=== PATIENT | male | born 1945 | race Caucasian/White ===

== ENCOUNTER 2016-03-27 14:40 | Outpatient (CLI) | END 2016-03-27 14:41 | disposition home or self-care (01) ==

== ENCOUNTER 2016-04-24 23:10 | Outpatient (CLI) | payer MEDICARE, OTHER | END 2016-04-24 23:11 | disposition home or self-care (01) | LOC: SC 23:10 | PROVIDERS: ATTEND Internal Medicine Pulmonary Disease | DX: G47.33 Obstructive sleep apnea (adult) (pediatric) (principal); Z68.29 Body mass index [BMI] 29.0-29.9, adult | CPT/HCPCS: 95810 ==

== ENCOUNTER 2016-05-13 10:07 | Outpatient (CLI) | payer MEDICARE, OTHER | END 2016-05-13 10:08 | disposition home or self-care (01) | DX: G47.33 Obstructive sleep apnea (adult) (pediatric) (principal) | CPT/HCPCS: 99213; G0463 ==

== ENCOUNTER 2016-07-18 22:25 | Outpatient (CLI) | payer MEDICARE, OTHER | END 2016-07-18 22:26 | disposition home or self-care (01) | DX: G47.33 Obstructive sleep apnea (adult) (pediatric) (principal); Z68.29 Body mass index [BMI] 29.0-29.9, adult ==

== ENCOUNTER 2016-08-04 13:19 | Outpatient (CLI) | payer MEDICARE, OTHER | END 2016-08-04 13:20 | disposition home or self-care (01) | DX: G47.33 Obstructive sleep apnea (adult) (pediatric) (principal) | CPT/HCPCS: 99213; G0463 ==

== ENCOUNTER 2016-09-22 14:24 | Outpatient (CLI) | payer MEDICARE, OTHER | END 2016-09-22 14:25 | disposition home or self-care (01) | LOC: SC 14:24 | PROVIDERS: ATTEND Internal Medicine Pulmonary Disease | DX: G47.33 Obstructive sleep apnea (adult) (pediatric) (principal) | CPT/HCPCS: 99213; G0463; 99212 ==

== ENCOUNTER 2016-10-03 10:00 | Outpatient (CLI) | payer MEDICARE, OTHER ==
[2016-10-03 12:46] LABS: BILIRUBIN,URINE NEGATIVE (NEGATIVE); PH,URINE 5.5 PH (5.0-7.5)
[2016-10-03 13:00] LABS: UA CHARGE (STRIP ONLY) YES; UR CULTURE IF IND NOT INDICATED
[2016-10-03 13:54] LABS: THYROID STIMULATING HORMONE 1.42 uIU/mL (0.34-5.60)
== END 2016-10-03 10:01 | disposition home or self-care (01) ==
LOC: LAB.R 10:00
PROVIDERS: ATTEND Nurse Practitioner Primary Care
DX: R41.89 Other symptoms and signs involving cognitive functions and awareness (principal); Z79.899 Other long term (current) drug therapy; R41.2 Retrograde amnesia
CPT/HCPCS: 81001; 81003; 82306; 82607; 84443; 86780; 87086

== ENCOUNTER 2017-02-04 14:10 | Outpatient (CLI) | payer MEDICARE, OTHER ==
[2017-02-04 14:17] LABS: BASOPHILS # (AUTO) 0.1 10^3/uL (0.0-0.1); EOSINOPHILS # (AUTO) 0.7 10^3/uL (0.0-0.7); EOSINOPHILS % (AUTO) 10.7 %; HCT - HEMATOCRIT 36.7 % (42.0-52.0); HGB - HEMOGLOBIN 12.4 g/dL (14.0-18.0); LYMPHOCYTES # (AUTO) 1.4 10^3/uL (1.5-3.5); LYMPHOCYTES % (AUTO) 23.3 %; MEAN CORPUSCULAR HEMOGLOBIN 28.2 pg (27.0-31.0); MEAN CORPUSCULAR HGB CONC 33.8 g/dL (32.0-36.0); MEAN CORPUSCULAR VOLUME 83.6 fL (80.0-94.0); MONOCYTES # (AUTO) 0.4 10^3/uL (0.0-1.0); NEUTROPHILS # (AUTO) 3.6 10^3/uL (1.5-6.6); RED BLOOD COUNT 4.39 10^6/uL (4.70-6.10); RED CELL DISTRIBUTION WIDTH 16.5 % (12.0-15.0); UNCORRECTED WHITE BLOOD COUNT 6.1 x10^3/uL; WHITE BLOOD COUNT 6.1 x10^3/uL (4.8-10.8)
[2017-02-04 14:37] LABS: ALBUMIN/GLOBULIN RATIO 1.3 (1.0-2.2); BILIRUBIN,TOTAL 0.4 mg/dL (0.2-1.0); BUN - BLOOD UREA NITROGEN 16 mg/dL (6-20); CARBON DIOXIDE - CO2 20 mmol/L (21-32); CHLORIDE 107 mmol/L (101-111); CHOL/HDL RATIO 3.7 (<5.0); CHOLESTEROL 157 mg/dL; CREATININE 1.2 mg/dL (0.6-1.2); GFR - MDRD 60 (>89); GLUCOSE 79 mg/dL (70-100); HDL CHOLESTEROL 42 mg/dL; POTASSIUM 3.8 mmol/L (3.5-5.0); SODIUM 138 mmol/L (135-145); TOTAL PROTEIN 7.6 g/dL (6.7-8.2); TRIGLYCERIDES 151 mg/dL; VLDL CHOLESTEROL 30 mg/dL
== END 2017-02-04 14:11 | disposition home or self-care (01) ==
LOC: LAB.R 14:10
PROVIDERS: ATTEND Physician Assistant Medical
DX: Z00.00 Encounter for general adult medical examination without abnormal findings (principal); D64.9 Anemia, unspecified; Z79.899 Other long term (current) drug therapy
CPT/HCPCS: 80053; 80061; 85025

== ENCOUNTER 2017-02-20 09:00 | Outpatient (CLI) | payer MEDICARE, OTHER | END 2017-02-20 09:01 | disposition home or self-care (01) | LOC: LAB.R 09:00 | PROVIDERS: ATTEND Nurse Practitioner Primary Care | DX: J30.9 Allergic rhinitis, unspecified (principal); J02.9 Acute pharyngitis, unspecified | CPT/HCPCS: 87070 ==

== ENCOUNTER 2017-05-13 08:00 | Outpatient (CLI) | payer MEDICARE, OTHER ==
[2017-05-13 11:57] LABS: BASOPHILS # (AUTO) 0.1 10^3/uL (0.0-0.1); BASOPHILS % (AUTO) 1.1 %; EOSINOPHILS # (AUTO) 0.5 10^3/uL (0.0-0.7); EOSINOPHILS % (AUTO) 10.2 %; HGB - HEMOGLOBIN 13.8 g/dL (14.0-18.0); LYMPHOCYTES # (AUTO) 1.5 10^3/uL (1.5-3.5); LYMPHOCYTES % (AUTO) 28.6 %; MEAN CORPUSCULAR HGB CONC 33.1 g/dL (32.0-36.0); MEAN CORPUSCULAR VOLUME 84.5 fL (80.0-94.0); MONOCYTES # (AUTO) 0.4 10^3/uL (0.0-1.0); MONOCYTES % (AUTO) 8.5 %; NEUTROPHILS # (AUTO) 2.7 10^3/uL (1.5-6.6); NEUTROPHILS % (AUTO) 51.6 %; PLT - PLATELET COUNT 221 10^3/uL (130-450); RED BLOOD COUNT 4.93 10^6/uL (4.70-6.10); RED CELL DISTRIBUTION WIDTH 17.9 % (12.0-15.0); WHITE BLOOD COUNT 5.2 x10^3/uL (4.8-10.8)
== END 2017-05-13 08:01 | disposition home or self-care (01) ==
LOC: LAB.R 08:00
PROVIDERS: ATTEND Physician Assistant Medical
DX: D64.9 Anemia, unspecified (principal); Z79.899 Other long term (current) drug therapy
CPT/HCPCS: 82728; 85025

== ENCOUNTER 2017-08-28 08:00 | Outpatient (CLI) | payer MEDICARE, OTHER ==
[2017-08-28 11:29] LABS: BASOPHILS # (AUTO) 0.1 10^3/uL (0.0-0.1); BASOPHILS % (AUTO) 0.9 %; EOSINOPHILS # (AUTO) 0.6 10^3/uL (0.0-0.7); EOSINOPHILS % (AUTO) 10.7 %; HGB - HEMOGLOBIN 15.2 g/dL (14.0-18.0); LYMPHOCYTES # (AUTO) 1.3 10^3/uL (1.5-3.5); LYMPHOCYTES % (AUTO) 23.4 %; MEAN CORPUSCULAR HEMOGLOBIN 32.2 pg (27.0-31.0); MEAN CORPUSCULAR HGB CONC 34.1 g/dL (32.0-36.0); MEAN CORPUSCULAR VOLUME 94.4 fL (80.0-94.0); MEAN PLATELET VOLUME 7.7 fL (7.4-11.4); MEAN RETIC VALUE 112.1; MONOCYTES # (AUTO) 0.4 10^3/uL (0.0-1.0); MONOCYTES % (AUTO) 7.4 %; NEUTROPHILS # (AUTO) 3.3 10^3/uL (1.5-6.6); NEUTROPHILS % (AUTO) 57.6 %; PLT - PLATELET COUNT 229 10^3/uL (130-450); RED BLOOD COUNT 4.73 10^6/uL (4.70-6.10); RED CELL DISTRIBUTION WIDTH 15.5 % (12.0-15.0); WHITE BLOOD COUNT 5.7 x10^3/uL (4.8-10.8)
[2017-08-28 11:42] LABS: % IRON SATURATION 22 % (20-50); IRON 75 ug/dL (45-182); TOTAL IRON BINDING CAPACITY 344 ug/dL (250-450); TRANSFERRIN 246 mg/dL (180-329)
== END 2017-08-28 08:01 | disposition home or self-care (01) ==
LOC: LAB.R 08:00
PROVIDERS: ATTEND Physician Assistant Medical
DX: D64.9 Anemia, unspecified (principal); Z79.899 Other long term (current) drug therapy
CPT/HCPCS: 82728; 83540; 84466; 85025; 85044

== ENCOUNTER 2017-10-07 11:05 | Outpatient (CLI) | payer MEDICARE, OTHER | END 2017-10-07 11:06 | disposition home or self-care (01) | LOC: SC 11:05 | PROVIDERS: ATTEND Nurse Practitioner Family | DX: G47.33 Obstructive sleep apnea (adult) (pediatric) (principal) | CPT/HCPCS: 99215; G0463; 99212 ==

== ENCOUNTER 2017-12-30 10:51 | Outpatient (CLI) | payer MEDICARE, OTHER | END 2017-12-30 10:52 | disposition home or self-care (01) | LOC: SC 10:51 | PROVIDERS: ATTEND Nurse Practitioner Family | DX: G47.33 Obstructive sleep apnea (adult) (pediatric) (principal) | CPT/HCPCS: 99215; G0463; 99212 ==

== ENCOUNTER 2018-03-10 08:34 | Outpatient (CLI) | payer MEDICARE, OTHER ==
[2018-03-10 12:10] LABS: BASOPHILS % (AUTO) 0.5 %; EOSINOPHILS # (AUTO) 0.1 10^3/uL (0.0-0.7); EOSINOPHILS % (AUTO) 1.7 %; HGB - HEMOGLOBIN 14.6 g/dL (14.0-18.0); LYMPHOCYTES # (AUTO) 1.7 10^3/uL (1.5-3.5); LYMPHOCYTES % (AUTO) 22.6 %; MEAN CORPUSCULAR HEMOGLOBIN 32.9 pg (27.0-31.0); MEAN CORPUSCULAR HGB CONC 34.4 g/dL (32.0-36.0); MEAN CORPUSCULAR VOLUME 95.7 fL (80.0-94.0); MONOCYTES # (AUTO) 0.7 10^3/uL (0.0-1.0); MONOCYTES % (AUTO) 9.6 %; NEUTROPHILS % (AUTO) 65.6 %; PLT - PLATELET COUNT 218 10^3/uL (130-450); RED BLOOD COUNT 4.42 10^6/uL (4.70-6.10); RED CELL DISTRIBUTION WIDTH 13.7 % (12.0-15.0); WHITE BLOOD COUNT 7.7 x10^3/uL (4.8-10.8)
[2018-03-10 12:18] LABS: ALBUMIN 4.3 g/dL (3.2-5.5); ALBUMIN/GLOBULIN RATIO 1.3 (1.0-2.2); ALKALINE PHOSPHATASE 59 IU/L (42-121); ALT ALANINE AMINOTRANSFERASE 17 IU/L (10-60); AST ASPARTATE AMINOTRANSFERASE 21 IU/L (10-42); BILIRUBIN,TOTAL 0.5 mg/dL (0.2-1.0); BUN - BLOOD UREA NITROGEN 18 mg/dL (6-20); CARBON DIOXIDE - CO2 23 mmol/L (21-32); CHLORIDE 105 mmol/L (101-111); CHOLESTEROL 162 mg/dL; GFR - MDRD 74 (>89); GLUCOSE 85 mg/dL (70-100); HDL CHOLESTEROL 54 mg/dL; LDL CHOLESTEROL,CALCULATED 69 mg/dL; LDL/HDL RATIO 1.3 (<3.6); SODIUM 137 mmol/L (135-145); TOTAL PROTEIN 7.5 g/dL (6.7-8.2); VLDL CHOLESTEROL 39 mg/dL
== END 2018-03-10 23:59 | disposition home or self-care (01) ==
LOC: LAB.R 08:34
PROVIDERS: ATTEND Physician Assistant Medical
DX: N40.0 Benign prostatic hyperplasia without lower urinary tract symptoms (principal); Z79.899 Other long term (current) drug therapy; E66.3 Overweight; Z12.5 Encounter for screening for malignant neoplasm of prostate; M15.9 Polyosteoarthritis, unspecified; R41.89 Other symptoms and signs involving cognitive functions and awareness
CPT/HCPCS: 80053; 80061; 83721; 84153; 84443; 85025

== ENCOUNTER 2018-03-17 10:19 | Outpatient (CLI) | payer MEDICARE, OTHER ==
--- NOTE | 2018-03-17 11:42 | XRAY Report ---
Reason: RIGHT FOOT PAIN Procedure Date: 03/17/2018 Accession Number: [id number] / [id number] Procedure: XR - Foot 3 View RT CPT Code: FULL RESULT: EXAM: RIGHT FOOT RADIOGRAPHY EXAM DATE: 03/17/2018 10:53 AM. CLINICAL HISTORY: Right foot pain. COMPARISON: None. TECHNIQUE: 3 views. FINDINGS: Bones: Normal. No fractures or bone lesions. Joints: There are degenerative changes of the interphalangeal joints, with appearance of osteoarthrosis. No subluxations. Soft Tissues: Normal. No soft tissue swelling. IMPRESSION: No acute fracture or dislocation is identified. RADIA
--- NOTE | 2018-03-17 11:42 | XRAY Report ---
Reason: COUGH Procedure Date: 03/17/2018 Accession Number: [id number] / [id number] Procedure: XR - Chest 2 View X-Ray CPT Code: 72571 FULL RESULT: EXAM: CHEST RADIOGRAPHY EXAM DATE: 03/17/2018 10:51 AM. CLINICAL HISTORY: Cough. COMPARISON: XR ACUTE ABDOMEN SERIES 01/16/2012 2:56 PM. TECHNIQUE: 2 views. FINDINGS: Lungs/Pleura: No focal opacities evident. No pleural effusion. No pneumothorax. Normal volumes. Mediastinum: Heart and mediastinal contours are unremarkable. Other: None. IMPRESSION: No acute cardiopulmonary abnormality. RADIA
== END 2018-03-17 10:20 | disposition home or self-care (01) ==
LOC: DI 10:19
PROVIDERS: ATTEND Physician Assistant Medical
DX: R05 Cough (principal); M79.671 Pain in right foot
CPT/HCPCS: 71046

== ENCOUNTER 2018-11-11 09:33 | Outpatient (CLI) | payer MEDICARE, OTHER ==
[2018-11-11 10:49] VITALS: BP 122/68
--- NOTE | 2018-11-11 10:49 | SLEEP CARE CONSULTATION ---
Information from patient questionnaire entered by Mesha Corea. I have reviewed and concur with the information entered by Mesha Corea. This document represents the service I personally performed and the decisions made by me, Lauren Marie, RN, MSN, REPULPING SUPERVISOR. History of Present Illness Previous diagnosis: Moderate, Obstructive Sleep Apnea-Hypopnea Syndrome AHI: 16.1 Reason for CPAP/BiPAP follow up: annual Equipment type: CPAP Equipment obtained from: [email or web address] (having difficulty getting equipment.) Mask style: Nasal (Dreamwear nasal mask) Mask brand: Respironics Backup mask available: Yes Last cushion change: 3 weeks HPI additional information: Changes since last seen, he has sold his home and traveling in with son's address as permanent until his new residence is ready in [place]. He is here early to transfer to [facility] as current one is not convenient with new [facility]. CPAP Compliance Data - Data Reviewed with Patient Average duration of nightly device use: 7.1 Compliance rate %: 76.7 (180 days) Current pressure setting (cmH2O): 10-14 Humidity settin Heated hose settin Average residual AHI: 3.1 Average large leak: 2 mins 27 secs Subjective Missed days of use due to: reports: other (facial irritation and unable to get updated supplies from [email or web address]) Patient concerns: reports: nasal congestion (occasionally and can interfer with CPAP use. ). denies: aerophagia, mask discomfort, air blowing in eyes, mask leak noise, condensation in mask/hose, dry mouth, nose, throat, epistaxis Observed to snore while using device: No (single and sleeps alone) Current pressure setting perceived as: comfortable On therapy, patient: reports: sleeping better, awakening more refreshed, being more awake and alert during the day, more rested overall. denies: drowsiness while driving Initial [place] Sleepiness Scale score: 18 Current [place] Sleepiness Scale score: 10 Allergies and Home Medications Known drug allergies: Yes (penicillin, sulfa ) Home medication list reviewed: Yes Allergy and home medication list: Terasozin 10mg tab one daily Sertraline 100mg tab one daily Multivitamin Tab one daily Vitamin B12 1000mg one daily Iron 325mg daily Loratadine 10mg tab one daily prn Montelukast 10mg tab one daily Eye drops for dry eyes 1 drop in each eye twice daily Review of Systems Review of systems same as previous: No (Dry eyes) Physical Exam Blood Pressure: 122/68 Cuff size: long Heart Rate: 57 O2 Saturation: 98 Height: 5 ft 11 in Weight (kg): 101.605 kg Body Mass Index: 31.2 BMI Classification: Class 1 Impression and Plan 1. Obstructive Sleep Apnea-Hypopnea Syndrome, moderate, with good treatment compliance and good apnea control. On CPAP therapy, the patient has better sleep quality and is more rested overall.To reduce risk irritation from mask, I showed him the Pad A Cheek sample strap covers again. The strap covers that come with mask are also irritating. A brochure was given for contact information. When unable to use the PAP device, he is advised to raise of bed 30-40 degrees to reduce apnea risks. Since patient has gained some weight, I explained how his weight affects his CPAP requirements and symptoms to report for pressure adjustment. For nasal congestion, he is reminded to use the saline nasal spray and showering at night. He was advised he can increase humidity. For supply concerns, he would like to transfer to [facility]. I will make a DWO for transfer. If further problems , he can transfer again. Patient's apnea severity and rationale for treatment to reduce apnea, improve sleep quality and reduce cardiovascular and cerebrovascular events was reviewed. I also reviewed the benefit of consistent device use of CPAP for depression/anxiety. * Continue CPAP pressure at 10-14 cmH2O * Implement methods to reduce nasal congestion * Transfer to new [facility] * Notify me if snoring with mask or feeling that the pressure is too much or too little * Attempt to lose weight * Return for follow up in 1 year , or sooner if concerns arise I spent 100% of this 35 minute visit face to face with the patient with greater than 50% of this was spent time counseling the patient and coordination of care.
== END 2018-11-11 09:34 | disposition home or self-care (01) ==
LOC: SC 09:33
PROVIDERS: ATTEND Nurse Practitioner Family
DX: G47.33 Obstructive sleep apnea (adult) (pediatric) (principal)
CPT/HCPCS: 99214; G0463; 99212

== ENCOUNTER 2019-11-16 11:16 | Outpatient (CLI) | payer MEDICARE, OTHER ==
--- NOTE | 2019-11-16 11:56 | SLEEP CARE CONSULTATION ---
Information from patient questionnaire entered by Mesha Corea. I have reviewed and concur with the information entered by Mesha Corea. This document represents the service I personally performed and the decisions made by , Yolie Barney ARNP. History of Present Illness Service Date and Time: 11/16/2019 1116 Previous diagnosis: Moderate, Obstructive Sleep Apnea-Hypopnea Syndrome AHI: 16.1 (in 2016)(24.4 in 2006) Reason for follow up: annual (last seen 2018) Equipment type: CPAP Equipment obtained from: [employer] (getting supplies as needed) Mask style: Nasal Mask brand: Respironics (Dreamwear) Backup mask available: Yes (old mask) Last cushion change: 3 weeks ago Prior sleep studies: Yes Year and Where: 2016 and 2006 - [facility] Sleep Type of Sleep Study: Polysomnography HPI additional information: ARIANA YU was diagnosed to have moderate, AHI 16.1, obstructive sleep apnea- hypopnea syndrome and returned today for CPAP therapy annual follow-up. CPAP Compliance Data - Data Reviewed with Patient Average duration of nightly device use: 7.2 Compliance rate %: 74.4 (180 days) Current pressure setting (cmH2O): 10-14 Humidity settin Heated hose settin Average residual AHI: 2.7 Average large leak: 14 min 1 sec Subjective Missed days of use due to: reports: other (due to skin irritation from al lergies) Patient concerns: reports: mask discomfort (only when having allergies), other (skin irritation intermittent; occurs when blowing nose a lot dealing with allergies; atopic dermatitis). denies: aerophagia, air blowing in eyes, mask leak noise, condensation in mask/hose, nasal congestion, dry mouth, nose, throat, epistaxis Observed to snore while using device: No Current pressure setting perceived as: comfortable On therapy, patient: reports: sleeping better, awakening more refreshed, being more awake and alert during the day, more rested overall. denies: drowsiness while driving Initial [place] Sleepiness Scale score: 18 (in 2017) Current [place] Sleepiness Scale score: 11 Allergies and Home Medications Drug allergies reviewed: Yes (sulfa, penicillin) Home medication list reviewed: Yes (no changes) Review of Systems Review of systems same as previous: No (Right thumb joint replacement) Physical Exam Heart Rate: 61 O2 Saturation: 98 Height: 5 ft 11 in Weight: 228 lb 3.2 oz Body Mass Index: 31.8 BMI Classification: Obese Impression and Plan 1. Obstructive Sleep Apnea-Hypopnea Syndrome, moderate, with good treatment compliance and good apnea control. On CPAP therapy, there is improved sleep quality and feels more rested overall. He has had some days missing but is maintaining CPAP use above 70%. He states his nose get "irritated" when dealing with allergies. His nose becomes sore from the constant blowing of his nose and it is too painful to use his nasal cushion. He has tried Vaseline and other applications but has found that using mupirocin at the first indication of irritation reduces it in 1-2 days. He states he has to allow his nose to heal and this means not wearing the CPAP for 5-10 days. He really wants to use his CPAP therapy but states if he starts back using it too soon the irritation will come back. He has a history of atopic dermatitis. He obtained the mupiricin from his PCP, he thinks for this problem. He was advised to try to keep his skin clean and dry during these episodes of allergies causing skin irritation. He should follow up promptly with his PCP with increased swelling, spreading redn ess, drainage and significant pain. He states agreement with plan of care. Patient's apnea severity and rationale for treatment to reduce apnea, improve sleep quality and reduce cardiovascular and cerebrovascular events was reviewed. I also reviewed the benefit of consistent device use of CPAP for his depression/anxiety. * Continue auto CPAP pressure at 10-14 cmH2O * Notify me if snoring with mask or feeling that the pressure is too much or too little * Attempt to lose weight * Call this office if any problems using CPAP * Return for follow up in a year, or sooner if concerns arise Visit Type: In Office Time Spent with Patient (minutes): 23 Provider Statement: I spent 100% of the Face to Face Visit with the patient with greater than 50% spent counseling the patient and coordination of care.
== END 2019-11-16 11:17 | disposition home or self-care (01) ==
LOC: SC 11:16
PROVIDERS: ATTEND Nurse Practitioner Family
DX: G47.33 Obstructive sleep apnea (adult) (pediatric) (principal); E66.9 Obesity, unspecified; Z68.31 Body mass index [BMI] 31.0-31.9, adult
CPT/HCPCS: 99213; G0463; 99212

== ENCOUNTER 2020-11-15 13:14 | Outpatient (CLI) | payer MEDICARE, OTHER ==
--- NOTE | 2020-11-15 13:48 | SLEEP CARE CONSULTATION ---
Information from patient questionnaire entered by Mesha Corea. I have reviewed and concur with the information entered by Mesha Corea. This document represents the service I personally performed and the decisions made by , Yolie Barney ARNP. History of Present Illness Service Date and Time: 11/15/2020 1314 Previous diagnosis: Moderate, Obstructive Sleep Apnea-Hypopnea Syndrome AHI: 16.1 (in 2016)(24.4 in 2006) Reason for follow up: annual (last seen 10/2019) Equipment type: CPAP Equipment obtained from: [employer] (getting supplies as needed) Mask style: Nasal Backup mask available: Yes (old mask) Last cushion change: 2 months Prior sleep studies: Yes Year and Where: 2016 and 2006 - [facility] HPI additional information: ARIANA YU was diagnosed to have moderate, AHI 16.1, obstructive sleep apnea-hypopnea syndrome and returns via Telehealth visit today for CPAP therapy annual follow-up. CPAP Compliance Data - Data Reviewed with Patient Average duration of nightly device use: 7 hr 38 min Compliance rate %: 89.4 (180 days) Current pressure setting (cmH2O): 10-14 Humidity settin Heated hose settin Average residual AHI: 3.0 Average large leak: 1 hr 22 min Subjective Missed days of use due to: reports: illness (had Covid) Patient concerns: reports: mask leak noise (occasional with headgear; fixes well with adjustment). denies: aerophagia, mask discomfort, air blowing in eyes, condensation in mask/hose, nasal congestion, dry mouth, nose, throat, epistaxis, other Observed to snore while using device: No Current pressure setting perceived as: comfortable On therapy, patient: reports: sleeping better, awakening more refreshed, being more awake and alert during the day, more rested overall. denies: drowsiness while driving Initial [place] Sleepiness Scale score: 18 (in 2017) Current [place] Sleepiness Scale score: 12 Allergies and Home Medications Home medication list reviewed: Yes (Metoprolol 25 mg BID added) Review of Systems Review of systems same as previous: Yes (no changes) Physical Exam Vital signs obtained and entered by: Telehealth visit to reduce exposure during Covid pandemic Height: 5 ft 11 in Impression and Plan 1. Obstructive Sleep Apnea-Hypopnea Syndrome, moderate, with good treatment compliance and good apnea control. On CPAP therapy, the patient has better sleep quality and is more rested overall. Patient states that he is recovering from Covid. He had a few nights that he was unable to use CPAP due to congestion. He has a [employer]. I informed the patient that [employer] has a recall on several devices like the patients machine. Patient was encouraged to register their device online with [employer] for the recall to see if their device is affected. If their device is affected they should start a claim. Patient denies any black particles seen in machine or hoses, any unusual odors coming from device. Patient has not experienced any physical symptoms such as upper airway irritation, headache, skin or eye irritation, asthma, nausea/vomiting, difficulty breathing or chest pain. Patient informed that they may use an inline CPAP filter that they can obtain online to reduce chance of any particles being inhaled or ingested. We discussed thoroughly the health risks of not using the CPAP versus continuing use with the filter in place. If patient is not able to sleep due to waking up choking, gasping for air or other respiratory distress that they may decide to continue using it until it is either replaced or repaired. Patient also uses a So Clean to keep his CPAP clean. I advised him that [employer] has advised CPAP users to stop using these with their machines as it may exacerbate the foam breakdown. Patient voiced understanding but states he will continue to use it to clean his CPAP. He states he will obtain a inline particle filter for his device. Patient's apnea severity and rationale for treatment to reduce apnea, improve sleep quality and reduce cardiovascular and cerebrovascular events was reviewed. I also reviewed the benefit of consistent device use of CPAP for depression/anxiety. * Continue auto CPAP pressure at 10-14 cmH2O * Patient to register device with [employer] for recall * Notify me if snoring with mask or feeling that the pressure is too much or too little * Attempt to lose weight * Call this office if any problems using CPAP * Return for follow up in 1 year, or sooner if concerns arise Counseling Topics: Spare mask, Weight loss health impact Visit Type: Telehealth Video Video Type: VSee Patient Location: Home Location of Provider: Office Patient agrees and consents to this telehealth visit type: Yes Patient agrees to have their insurance billed: Yes Time Spent with Patient (minutes): 22 Provider Statement: I spent 100% of the Telehealth Video Call with the patient with greater than 50% spent counseling the patient and coordination of care.
== END 2020-11-15 13:15 | disposition home or self-care (01) ==
LOC: SC 13:14
PROVIDERS: ATTEND Nurse Practitioner Family
DX: G47.33 Obstructive sleep apnea (adult) (pediatric) (principal)

== ENCOUNTER 2022-03-25 10:50 | Outpatient (CLI) | payer MEDICARE, OTHER ==
[2022-03-25 12:06] VITALS: BP 126/68
--- NOTE | 2022-03-25 12:06 | SLEEP CARE CONSULTATION ---
Information from patient questionnaire entered by Christopher Flores. I have reviewed and concur with the information entered by Christopher Flores. This document represents the service I personally performed and the decisions made by me, Yolie Barney ARNP. History of Present Illness Service Date and Time: 03/25/2022 1050 Previous diagnosis: Moderate, Obstructive Sleep Apnea-Hypopnea Syndrome AHI: 16.1 (in 2016)(24.4 in 2006) Reason for follow up: first compliance after device update (setup date 02/06/2022) Equipment type: CPAP (ResMed Airsense 11) Equipment obtained from: [employer] (getting supplies as needed) Mask style: Nasal Backup mask available: Yes (old mask) Last cushion change: 1 month + Prior sleep studies: Yes Year and Where: 2016 and 2006 - [facility] HPI additional information: ARIANA YU was diagnosed to have moderate, AHI 16.1, obstructive sleep apnea- hypopnea syndrome and returned today for CPAP therapy first compliance after updating device follow-up. Sleep Study - Results Prior sleep studies: Yes Year and Where: 2016 and 2006 - [facility] CPAP Compliance Data - Data Reviewed with Patient Average duration of nightly device use: 7 hours 35 minutes Compliance rate %: 97 (/30 days used) Current pressure setting (cmH2O): 10-14 Average residual AHI: 16.0 Central apnea: 0.8 Obstructive apnea: 0.1 Hypopnea: 0.7 Average large leak: 80.5 lpm Subjective Patient concerns: reports: nasal congestion, dry mouth, nose, throat, epistaxis. denies: aerophagia, mask discomfort, air blowing in eyes, mask leak noise, condensation in mask/hose Observed to snore while using device: No Current pressure setting perceived as: comfortable On therapy, patient: reports: sleeping better, awakening more refreshed, being more awake and alert during the day, more rested overall. denies: drowsiness while driving Initial [place] Sleepiness Scale score: 18 (in 2016) Current [place] Sleepiness Scale score: 13 (03/25/22) Allergies and Home Medications Drug allergies reviewed: Yes (see list in EMR) Home medication list reviewed: Yes (Ipratropium (nasal)) Review of Systems Review of systems same as previous: Yes (no changes) Physical Exam Vital signs obtained and entered by: CHRISTOPHER Paris MA Blood Pressure: 126/68 (LEFT ARM) Cuff size: regular Heart Rate: 70 O2 Saturation: 96 Height: 5 ft 11 in Weight: 210 lb 6.4 oz Body Mass Index: 29.3 BMI Classification: Overweight Impression and Plan 1. Obstructive Sleep Apnea-Hypopnea Syndrome, moderate, with good treatment compliance and good apnea control. On CPAP therapy, the patient has better sleep quality and is more rested overall. His residual AHI is elevated but he is also having an average large leak of 80.5 lpm. He states he thinks his headgear is too stretched out and he has to tighten it a lot to reduce leaking. I advised that he order a new headgear and not over-tighten the headgear to reduce leaking. He voiced understanding. Patient likes the new CPAP except that the water chamber is becoming dry before he wakes up in the morning. He is having lots of nasal congestion and drainage, some blood in the drainage from his nose and dry mouth, throat too. He states he did not have this problem with his old machine. His ResMed Airsense 11 is set at 2 for his humidity and he awakens to a dry water chamber after 7.5 hours of sleep. I will have the machine serviced to see if the humidifier is working properly. He will call if he has further issues. Patient's apnea severity and rationale for treatment to reduce apnea, improve sleep quality and reduce cardiovascular and cerebrovascular events was reviewed. I also reviewed the benefit of consistent device use of CPAP for depression/anxiety. 2. Overweight, unspecified. Currently patients BMI is 29.3. Obesity increases the risk of apnea, CPAP pressure requirements and overall health risks especially cardiovascular and diabetes. Thus patient is advised to lose weight. * Continue auto CPAP pressure at 10-14 cmH2O * Service machine, humidifier not working right * Notify me if snoring with mask or feeling that the pressure is too much or too little * Attempt to lose weight * Call this office if any problems using CPAP * Return for follow up in 1 year, or sooner if concerns arise Counseling Topics: Spare mask, Weight loss health impact Visit Type: In Office Time Spent with Patient (minutes): 21 Provider Statement: I spent 100% of the Face to Face Visit with the patient with greater than 50% spent counseling the patient and coordination of care.
== END 2022-03-25 10:51 | disposition home or self-care (01) ==
LOC: SC 10:50
PROVIDERS: ATTEND Nurse Practitioner Family
DX: G47.33 Obstructive sleep apnea (adult) (pediatric) (principal); E66.3 Overweight; Z68.29 Body mass index [BMI] 29.0-29.9, adult
CPT/HCPCS: 99213; G0463; 99212

== ENCOUNTER 2023-04-08 15:12 | Outpatient (CLI) | payer MEDICARE, OTHER ==
--- NOTE | 2023-04-08 14:47 | SLEEP CARE CONSULTATION ---
Information from patient questionnaire entered by Christopher Flores. I have reviewed and concur with the information entered by Christopher Flores. This document represents the service I personally performed and the decisions made by me, Yolie Barney ARNP. History of Present Illness Service Date and Time: 04/08/2023 1340 Previous diagnosis: Moderate, Obstructive Sleep Apnea-Hypopnea Syndrome AHI: 16.1 (in 2016)(24.4 in 2006) Reason for follow up: annual (LAST SEEN 03/2022) Equipment type: CPAP (ResMed Airsense 11; s/u ) Equipment obtained from: [employer] (getting supplies as needed) Mask style: Nasal Backup mask available: Yes Last cushion change: every 2-3 weeks Prior sleep studies: Yes Year and Where: 2016 and 2006 - [facility] HPI additional information: RAIANA YU was diagnosed to have moderate, AHI 16.1, obstructive sleep apnea- hypopnea syndrome and returned today for CPAP therapy annual follow-up. Sleep Study - Results Prior sleep studies: Yes Year and Where: 2016 and 2006 - [facility] CPAP Compliance Data - Data Reviewed with Patient Average duration of nightly device use: 7 HRS 9 MINS Compliance rate %: 86 (04/07/22-04/06/23; 325/365 days used) Current pressure setting (cmH2O): 10-14 Average residual AHI: 14 (unknown 12.8) Central apnea: 0.3 Obstructive apnea: 0.0 Hypopnea: 0.9 Average large leak: 92.9 L/min Subjective Missed days of use due to: reports: travel Patient concerns: reports: other (occasional pressure too high and leaking around mask, wakes him up). denies: aerophagia, mask discomfort, air blowing in eyes, mask leak noise, condensation in mask/hose, nasal congestion, dry mouth, nose, throat, epistaxis Observed to snore while using device: No Current pressure setting perceived as: comfortable On therapy, patient: reports: sleeping better, other (still waking up tired). denies: drowsiness while driving Initial [place] Sleepiness Scale score: 18 (in 2017) Current [place] Sleepiness Scale score: 12 Allergies and Home Medications Known drug allergies: Yes (as listed) Drug allergies reviewed: Yes Home medication list reviewed: Yes (Meloxicam, low dose) Allergy and home medication list: Allergies latex Allergy (Verified 04/07/23 13:44) Penicillins Allergy (Verified 04/07/23 13:44) Sulfa (Sulfonamide Antibiotics) Allergy (Verified 04/07/23 13:44) Review of Systems Review of systems same as previous: Yes (PT for neck/shoulder) Physical Exam Vital signs obtained and entered by: CHRISTOPHER Paris MA Blood Pressure: 128/72 (per pt) Height: 5 ft 10 in (per pt) Weight: 215 lb (per pt) Body Mass Index: 30.8 BMI Classification: Obese Impression and Plan 1. Obstructive Sleep Apnea-Hypopnea Syndrome, moderate, with good treatment compliance and fair apnea control with elevated residual AHI. On CPAP therapy, the patient does not feel refreshed in the morning. He is having unknown respiratory episodes at 12.8. Patient's current pressure setting is not optimal to control sleep apnea. I advised patient that a titration study will be next step to determine a more optimal pressure setting. They voiced understanding and agreement. He has also been having issues with the pressure surging really high it waking him up at night where he cannot breathe with the pressure. He is not sure why it is doing this. I do not see any more than 10.4 cmH2O as max pressure with his pressure set at 10-14 cmH2O. Patient states it is very uncomfortable when this happens. His machine is still fairly new it is just over a year old. I will add a machine servicing to his prescription for his supplies to see if they can check it out to determine if there is any malfunctioning going on. Patient's apnea severity and rationale for treatment to reduce apnea, improve sleep quality and reduce cardiovascular and cerebrovascular events was reviewed. I also reviewed the benefit of consistent device use of CPAP for depression/anxiety. 2. Obesity, unspecified. Currently patients BMI is 30.8. Obesity increases the risk of apnea, CPAP pressure requirements and overall health risks especially cardiovascular and diabetes. Thus patient is advised to lose weight. * Continue auto CPAP pressure at 10-14 cmH2O * Titration study * Service machine for bursts of pressure waking up patient * Update supply prescription * Notify me if snoring with mask or feeling that the pressure is too much or too little * Attempt to lose weight * Call this office if any problems using CPAP * Return for follow up after titration study, or sooner if concerns arise Counseling Topics: Spare mask, Weight loss health impact Prescriptions: Device supplies (with machine servicing) Follow up with Sleep Care in: other (after titration study) Plan: Titration Study Visit Type: Telehealth Phone Video Type: Other Patient Location: Home Location of Provider: Office Patient agrees and consents to this telehealth visit type: Yes Patient agrees to have their insurance billed: Yes Time Spent with Patient (minutes): 26 Provider Statement: I spent 100% of the Telehealth Phone Call with the patient with greater than 50% spent counseling the patient and coordination of care.
[2023-04-08 14:51] VITALS: BP 128/72
== END 2023-04-08 15:13 | disposition home or self-care (01) ==
LOC: SC 15:12
PROVIDERS: ATTEND Nurse Practitioner Family
DX: G47.33 Obstructive sleep apnea (adult) (pediatric) (principal); E66.9 Obesity, unspecified; Z68.30 Body mass index [BMI] 30.0-30.9, adult
CPT/HCPCS: 99443

== ENCOUNTER 2023-04-19 20:46 | Outpatient (CLI) | payer MEDICARE, OTHER | END 2023-04-19 20:47 | disposition home or self-care (01) | LOC: SC 20:46 | PROVIDERS: ATTEND Nurse Practitioner Family | DX: G47.33 Obstructive sleep apnea (adult) (pediatric) (principal) | CPT/HCPCS: 95811 ==

== ENCOUNTER 2023-06-09 11:33 | Outpatient (CLI) | payer MEDICARE, OTHER ==
--- NOTE | 2023-06-09 11:38 | SLEEP CARE CONSULTATION ---
Information from patient questionnaire entered by Mariluz Flores. I have reviewed and concur with the information entered by Mariluz Flores. This document represents the service I personally performed and the decisions made by me, Yolie Barney ARNP. History of Present Illness Service Date and Time: 06/09/2023 1120 Previous diagnosis: Moderate, Obstructive Sleep Apnea-Hypopnea Syndrome AHI: 16.1 (in 2016)(24.4 in 2006) Reason for follow up: other (6 WEEK F/U) Equipment type: CPAP (ResMed Airsense 11; s/u ) Equipment obtained from: [employer] (getting supplies as needed) Mask style: Nasal Mask brand: Respironics Backup mask available: Yes Last cushion change: 2 days ago Prior sleep studies: Yes Year and Where: 2016 and 2006 - [facility] Type of Sleep Study: Polysomnography (TITRATION F/U COMPLETED ON 04/19/23) HPI additional information: ARIANA YU was diagnosed to have moderate, AHI 16.1, obstructive sleep apnea- hypopnea syndrome and returns via telephone appointment today for CPAP therapy six week pressure change follow-up. Sleep Study - Results Type of Sleep Study: Polysomnography (TITRATION F/U COMPLETED ON 04/19/23) Prior sleep studies: Yes Year and Where: 2016 and 2006 - [facility] CPAP Compliance Data - Data Reviewed with Patient Average duration of nightly device use: 6 HRS 26 MINS Compliance rate %: 70 (05/06/23-06/04/23; 24/30 days used) Current pressure setting (cmH2O): 13 Average residual AHI: 13.3 (unknown 13.3) Central apnea: 0 Obstructive apnea: 0 Hypopnea: 0.8 Average large leak: 108 L/min Subjective Missed days of use due to: reports: illness Patient concerns: reports: air blowing in eyes, mask leak noise, nasal congestion (when gets up in morning, has to blow nose a lot), dry mouth, nose, throat. denies: aerophagia, mask discomfort, condensation in mask/hose, epistaxis Observed to snore while using device: No Current pressure setting perceived as: too high (turns off 2-3 times a night due to blowing hard and around mask) On therapy, patient: reports: sleeping better, awakening more refreshed, being more awake and alert during the day, more rested overall. denies: drowsiness while driving Initial [place] Sleepiness Scale score: 18 (in 2017) Current [place] Sleepiness Scale score: 7 Allergies and Home Medications Known drug allergies: Yes (as listed) Drug allergies reviewed: Yes Home medication list reviewed: Yes (no changes) Allergy and home medication list: Allergies latex Allergy (Verified 06/05/23 12:16) Penicillins Allergy (Verified 06/05/23 12:16) Sulfa (Sulfonamide Antibiotics) Allergy (Verified 06/05/23 12:16) Review of Systems Review of systems same as previous: No (strep throat) Physical Exam Vital signs obtained and entered by: YOLIE CANALES Height: 5 ft 10 in (per pt) Weight: 220 lb (per pt) Body Mass Index: 31.5 BMI Classification: Obese Impression and Plan 1. Obstructive Sleep Apnea-Hypopnea Syndrome, moderate, with good treatment compliance and fair apnea control with elevated residual AHI. On CPAP therapy, the patient has better sleep quality and is more rested overall. His current pressure is at 13 cmH2O and all indexes are well controlled except the average large leak is excessive and he continues to have an average large leak of 108 L/min. I am sure this is the cause of his elevated residual AHI. Patient has been having trouble with the pressure feeling too high and having to ramp it down several times a night. I will adjust the pressure to help reduce how high it feels. He is resuming to use his nasal cushion mask. He did not like full face mask because it would cause more leaks. The patients pressure will be changed to autoCPAP 10-13 cmH20 for patient comfort. Patient advised to contact me if pressure change is uncomfortable so that it can be adjusted. Goals for apnea control discussed. Patient's apnea severity and rationale for treatment to reduce apnea, improve sleep quality and reduce cardiovascular and cerebrovascular events was reviewed. I also reviewed the benefit of consistent device use of CPAP for depression/anxiety. 2. Obesity, unspecified. Currently patients BMI is 31.5. Obesity increases the risk of apnea, CPAP pressure requirements and overall health risks especially cardiovascular and diabetes. Thus patient is advised to lose weight. * Change auto CPAP pressure to 10-13 cmH2O * Notify me if snoring with mask or feeling that the pressure is too much or too little * Attempt to lose weight * Call this office if any problems using CPAP * Return for follow up in 12 months, or sooner if concerns arise Counseling Topics: Spare mask, Weight loss health impact Prescriptions: Other (pressure change to 10-13 cmH2O) Follow up with Sleep Care in: 1 year Visit Type: Telehealth Phone Video Type: Doximity Patient Location: Home Location of Provider: Office Patient agrees and consents to this telehealth visit type: Yes Time Spent with Patient (minutes): 15 Provider Statement: I spent 100% of the Telehealth Phone Call with the patient with greater than 50% spent counseling the patient and coordination of care.
== END 2023-06-09 11:34 | disposition home or self-care (01) ==
LOC: SC 11:33
PROVIDERS: ATTEND Nurse Practitioner Family
DX: G47.33 Obstructive sleep apnea (adult) (pediatric) (principal); E66.9 Obesity, unspecified; Z68.31 Body mass index [BMI] 31.0-31.9, adult
CPT/HCPCS: 99442